=== PATIENT | male | born 1970 | race Caucasian/White ===

== ENCOUNTER 2020-11-13 16:39 | Emergency (ER) | payer OTHER ==
[~2020-11-13] VITALS: Ht 167.6 cm; Wt 68.0 kg
[2020-11-13 18:08] VITALS: BP 152/77
--- NOTE | 2020-11-13 18:13 | NUR ---
TASK RN NOTE: PT GIVEN DC INSTRUCTIONS WITH GENERAL SURGEON REFERRAL. PT VERBALIZES UNDERSTANDING. PT A&O, RESPS EVEN AND UNLABORED, NADN. PT AMBULATORY TO DC DESK WITH STEADY GAIT, ACCOMPANIED BY LAW ENFORCEMENT.
== END 2020-11-13 18:14 ==
LOC: ED 17:22
DX: M79.5 Residual foreign body in soft tissue (principal)
CPT/HCPCS: 99283